=== PATIENT | female | born 1940 | race Caucasian/White ===

== ENCOUNTER 2019-04-09 09:52 | Inpatient (IN) | payer MEDICARE, OTHER ==
[~2019-04-09] VITALS: Ht 167.6 cm; Wt 68.2 kg
[2019-04-09] MEDS ORDERED: AMIODARONE 150 MG in DEXTROSE 5% 97 ML IV ONE (10:31)
[2019-04-09] MEDS ORDERED: AMIODARONE 50 MG/ML, 3ML ONE (10:31)
[2019-04-09] MEDS ORDERED: AMIODARONE 450 MG in DEXTROSE 5% 241 ML IV PRN (10:31)
--- NOTE | 2019-04-09 10:34 | NUR ---
PT TO ROOM 4 VIA WHEELCHAIR FROM TRIAGE. PT CHANGED INTO GOWN AND 02 6L OXY MASK PLACED. PT ON MONITOR. DR BLANCO AT BEDSIDE. HEART RHYTHM INTERMITANT V-TACH NOTED ON MONITOR. PIV ESTABLISHED, PT PLACED ON TRANSPORT MONITOR AND MOVED TO TRAUMA 4. 150MG AMIODARONE IVP GIVEN. PT TOLLERATING RHYTHM AND IS ABLE TO TALK T/O, ASYMPTOMATIC AND BP STABLE NOTED. DEFIB PADS IN PLACE AND MONITOR ON. SBAR RPT TO ROSSANA CUI.
[2019-04-09] MEDS ORDERED: FUROSEMIDE 20 MG/2 ML ONE (10:50)
[2019-04-09] MEDS ORDERED: ASPIRIN 81 MG TABLET CHEW ONE (10:50)
[2019-04-09] MEDS ORDERED: ASPIRIN 81 MG TABLET CHEW PO ONE (11:00)
[2019-04-09] MEDS ORDERED: SODIUM CHLORIDE FLUSH 10ML SYR IVF ONE (11:00)
[2019-04-09] MEDS ORDERED: AMIODARONE 150 MG in DEXTROSE 5% 100 ML IV ONE ×2 (11:00→18:00)
[2019-04-09] MEDS ORDERED: FUROSEMIDE 40 MG/4 ML IVPush ONE (11:00)
[2019-04-09] MEDS: FILTER 0.22 MICRON FOR AMIODARONE IV PRN (11:02)
--- NOTE | 2019-04-09 11:04 | NUR ---
RECEIVED REPORT FROM RICH TRACY, PLAN OF CARE DISCUSSED. AMIODARONE GTT STARTED. PT IN AFIB WITH RVR WITH RUNS OF VTACH. DR. SHEPPARD AT BS
--- NOTE | 2019-04-09 11:10 | NUR ---
RUN OF Allegra BOX MD AT
[2019-04-09] MEDS ORDERED: DILTIAZEM 5 MG/ML, 5ML ONE (11:11)
[2019-04-09 11:14] LABS: BASOPHILS # (AUTO) 0.06 x10^3/uL (0-0.1); BASOPHILS % (AUTO) 1 % (0-1); EOSINOPHILS % (AUTO) 1 % (1-7); LYMPHOCYTES # (AUTO) 2.14 x10^3/uL (1-3.4); LYMPHOCYTES % (AUTO) 25 % (22-44); MD NO; MEAN CORPUSCULAR HEMOGLOBIN 29.2 pg (27.0-34.8); MEAN CORPUSCULAR HGB CONC 32.7 g/dL (32.4-35.8); MEAN CORPUSCULAR VOLUME 89.3 fL (80-100); MEAN PLATELET VOLUME 8.8 fL (7.4-10.4); MONOCYTES # (AUTO) 0.59 x10^3/uL (0.2-0.8); MONOCYTES % (AUTO) 7 % (2-9); NEUTROPHILS # (AUTO) 5.84 x10^3/uL (1.8-6.8); NEUTROPHILS % (AUTO) 67 % (42-75); PLATELET COUNT 201 x10^3/uL (130-400); RED BLOOD COUNT 5.21 x10^6/uL (3.82-5.3); RED CELL DISTRIBUTION WIDTH 14.5 % (9.6-15.2)
[2019-04-09] MEDS ORDERED: [UNRECOGNIZED DRUG - OTHER] (11:21)
[2019-04-09 11:24] LABS: INTERNATIONAL NORMALIZED RATIO 1.04 (0.93-1.1)
[2019-04-09 11:28] LABS: ALBUMIN 3.6 g/dL (3.4-5.0); ANION GAP 8 mmol/L (5-15); CALCIUM 8.8 mg/dL (8.5-10.1); CHLORIDE 107 mmol/L (98-107)
[2019-04-09] MEDS ORDERED: DILTIAZEM 5 MG/ML, 5ML IVPush ONE (11:30)
[2019-04-09 11:32] LABS: ALANINE AMINOTRANSFERASE 46 U/L (12-78); ALKALINE PHOSPHATASE 101 U/L (45-117); BILIRUBIN,TOTAL 0.8 mg/dL (0.2-1.0); TOTAL PROTEIN 7.2 g/dL (6.4-8.2); TROPONIN I 0.107 ng/mL (0.000-0.045)
[2019-04-09 11:37] LABS: T4 (THYROXINE) 11.7 mcg/dL (4.8-13.9)
--- NOTE | 2019-04-09 11:38 | NUR ---
PT RESTING WITH , HR 96 AFIB. VERBALIZED NO NEEDS AT THIS TIME
[2019-04-09] MEDS ORDERED: DILTIAZEM 125 MG in SODIUM CHLORIDE 0.9% 100 ML IV SCH (12:00)
[2019-04-09] MEDS ORDERED: ACETAMINOPHEN 325 MG TABLET PO PRN (12:00)
[2019-04-09] MEDS ORDERED: HEPARIN 5,000 UNITS/ML, 1ML IV ONE (12:00)
[2019-04-09] MEDS ORDERED: ONDANSETRON ODT 4 MG PO PRN (12:00)
[2019-04-09] MEDS ORDERED: hydrALAzine 20 MG/ML, 1ML IVPush PRN (12:00)
[2019-04-09] MEDS ORDERED: HEPARIN 5,000 UNITS/ML, 1ML IV PRN (12:00)
--- NOTE | 2019-04-09 12:09 | NUR ---
REPORT TO KELLI TRACY, PLAN OF CARE DISCUSSED
--- NOTE | 2019-04-09 12:09 | NUR ---
PT MOVED TO ROOM 38. TBADM. [facility] AT BEDSIDE. SR 90S W/ PVCS. CALL [place] IN REACH.
[2019-04-09] MEDS ORDERED: HEPARIN 5,000 UNITS/ML, 1ML ONE (12:27)
[2019-04-09] MEDS ORDERED: HEPARIN 25,000 UNITS/250ML PMX 250 ML ONE (12:27)
[2019-04-09] MEDS ORDERED: POTASSIUM CHLORIDE 20 MEQ TAB.ER.PRT PO ONE (12:30)
[2019-04-09] MEDS: HEPARIN 25,000 UNITS/250ML PMX 250 ML IV PRN (12:48)
--- NOTE | 2019-04-09 12:54 | NUR ---
HEPARIN GTT STARTED PAGE OUT TO CHEKO RE DILT GTT, VITALS.
--- NOTE | 2019-04-09 13:03 | NUR ---
HOLD CARDIZEM GTT PER CHEKO.
--- NOTE | 2019-04-09 13:29 | NUR ---
REPORT TO ANJEL TRACY.
[2019-04-09] MEDS ORDERED: POTASSIUM CHLORIDE 10 MEQ TABLET.ER ONE (17:16)
[2019-04-09] MEDS: FUROSEMIDE 40 MG/4 ML IV SCH (17:31)
[2019-04-09 18:10] LABS: TROPONIN I 0.096 ng/mL (0.000-0.045)
[2019-04-09] MEDS: ONDANSETRON 2MG/ML, 2ML IVPush PRN (18:36)
[2019-04-09] MEDS ORDERED: ALBUTEROL SULFATE 2.5 MG/3 ML ONE (18:40)
[2019-04-09] MEDS ORDERED: ALBUTEROL SULFATE 2.5 MG/3 ML NPPB PRN (19:00)
[2019-04-09 19:35] VITALS: BP 105/75
[2019-04-10 01:15] VITALS: BP 107/79
[2019-04-10 02:47] LABS: MICROSCOPIC AUTO
[2019-04-10 02:53] LABS: CULTURE INDICATED? YES
[2019-04-10 05:33] LABS: BASOPHILS # (AUTO) 0.03 x10^3/uL (0-0.1); BASOPHILS % (AUTO) 0 % (0-1); EOSINOPHILS # (AUTO) 0.02 x10^3/uL (0-0.4); EOSINOPHILS % (AUTO) 0 % (1-7); LYMPHOCYTES # (AUTO) 1.23 x10^3/uL (1-3.4); LYMPHOCYTES % (AUTO) 17 % (22-44); MD NO; MEAN CORPUSCULAR HEMOGLOBIN 29.2 pg (27.0-34.8); MEAN CORPUSCULAR HGB CONC 32.7 g/dL (32.4-35.8); MEAN CORPUSCULAR VOLUME 89.3 fL (80-100); MEAN PLATELET VOLUME 9.3 fL (7.4-10.4); MONOCYTES # (AUTO) 0.45 x10^3/uL (0.2-0.8); MONOCYTES % (AUTO) 6 % (2-9); NEUTROPHILS # (AUTO) 5.53 x10^3/uL (1.8-6.8); NEUTROPHILS % (AUTO) 76 % (42-75); PLATELET COUNT 186 x10^3/uL (130-400); RED BLOOD COUNT 4.75 x10^6/uL (3.82-5.3); RED CELL DISTRIBUTION WIDTH 14.4 % (9.6-15.2)
[2019-04-10 05:40] LABS: ANION GAP 6 mmol/L (5-15); CALCIUM 8.5 mg/dL (8.5-10.1); CHLORIDE 104 mmol/L (98-107); CREATININE 0.87 mg/dL (0.55-1.02)
[2019-04-10 05:44] LABS: TROPONIN I 0.069 ng/mL (0.000-0.045)
[2019-04-10 07:33] VITALS: BP 110/75
[2019-04-10] MEDS: FUROSEMIDE 40 MG/4 ML IV SCH ×2 (08:31→18:02)
[2019-04-10] MEDS: ASPIRIN 81 MG TABLET CHEW PO SCH (08:31)
[2019-04-10] MEDS: ONDANSETRON 2MG/ML, 2ML IVPush PRN (09:14)
[2019-04-10] MEDS ORDERED: PROMETHAZINE 25 MG/ML, 1ML IM ONE (10:00)
[2019-04-10] MEDS: CARVEDILOL 3.125 MG TABLET PO SCH ×2 (10:09→18:03)
[2019-04-10 10:11] VITALS: BP 103/71
[2019-04-10 10:19] LABS: CHOL/HDL RATIO 2.3; LDL/HDL RATIO 1.1 (0.5-3.0)
[2019-04-10] MEDS: AMIODARONE 450 MG in DEXTROSE 5% 241 ML IV PRN (13:16)
[2019-04-10 13:55] VITALS: BP 101/70
[2019-04-10] MEDS: HEPARIN 25,000 UNITS/250ML PMX 250 ML IV PRN (18:04)
[2019-04-10 19:16] VITALS: BP 102/61
[2019-04-10] MEDS: ATORVASTATIN 40 MG TABLET PO SCH (21:05)
[2019-04-10] MEDS: LISINOPRIL 5 MG TABLET PO SCH (21:06)
[2019-04-11 01:19] VITALS: BP 100/65
[2019-04-11 06:22] VITALS: BP_SYST 87; BP_SYST 95; BP_DIAS 57; BP_DIAS 60
[2019-04-11] MEDS: FILTER 0.22 MICRON FOR AMIODARONE IV PRN (06:25)
[2019-04-11] MEDS: AMIODARONE 450 MG in DEXTROSE 5% 241 ML IV PRN (06:25)
[2019-04-11 06:49] LABS: BASOPHILS # (AUTO) 0.05 x10^3/uL (0-0.1); BASOPHILS % (AUTO) 1 % (0-1); EOSINOPHILS # (AUTO) 0.07 x10^3/uL (0-0.4); EOSINOPHILS % (AUTO) 1 % (1-7); LYMPHOCYTES # (AUTO) 1.94 x10^3/uL (1-3.4); LYMPHOCYTES % (AUTO) 23 % (22-44); MD NO; MEAN CORPUSCULAR HEMOGLOBIN 29.3 pg (27.0-34.8); MEAN CORPUSCULAR HGB CONC 32.8 g/dL (32.4-35.8); MEAN CORPUSCULAR VOLUME 89.6 fL (80-100); MEAN PLATELET VOLUME 9.2 fL (7.4-10.4); MONOCYTES # (AUTO) 0.71 x10^3/uL (0.2-0.8); MONOCYTES % (AUTO) 8 % (2-9); NEUTROPHILS # (AUTO) 5.74 x10^3/uL (1.8-6.8); NEUTROPHILS % (AUTO) 67 % (42-75); PLATELET COUNT 162 x10^3/uL (130-400); RED BLOOD COUNT 4.88 x10^6/uL (3.82-5.3); RED CELL DISTRIBUTION WIDTH 14.8 % (9.6-15.2)
[2019-04-11 07:05] LABS: ALANINE AMINOTRANSFERASE 37 U/L (12-78); ALBUMIN 3.1 g/dL (3.4-5.0); ANION GAP 7 mmol/L (5-15); CALCIUM 8.5 mg/dL (8.5-10.1); CHLORIDE 101 mmol/L (98-107); CREATININE 0.92 mg/dL (0.55-1.02)
[2019-04-11 07:07] LABS: ALKALINE PHOSPHATASE 81 U/L (45-117); BILIRUBIN,TOTAL 0.8 mg/dL (0.2-1.0); TOTAL PROTEIN 6.5 g/dL (6.4-8.2)
[2019-04-11] MEDS: FUROSEMIDE 40 MG/4 ML IV SCH ×2 (07:30→16:18)
[2019-04-11] MEDS: ASPIRIN 81 MG TABLET CHEW PO SCH (08:31)
[2019-04-11] MEDS: CARVEDILOL 3.125 MG TABLET PO SCH ×2 (08:32→18:00)
[2019-04-11] MEDS: LISINOPRIL 5 MG TABLET PO SCH ×2 (08:32→20:22)
[2019-04-11 12:25] VITALS: BP 98/63
[2019-04-11] MEDS ORDERED: LIDOCAINE-MPF 1%, 5ML ONE (13:56)
[2019-04-11] MEDS ORDERED: TICAGRELOR 90 MG TABLET ONE (13:56)
[2019-04-11] MEDS ORDERED: VERAPAMIL 2.5 MG/ML, 2ML ONE (13:56)
[2019-04-11] MEDS ORDERED: FENTANYL PF 100 MCG/2ML ONE (13:56)
[2019-04-11] MEDS ORDERED: MIDAZOLAM 1 MG/ML, 5ML ONE (13:56)
[2019-04-11] MEDS ORDERED: BIVALIRUDIN 250 MG ONE (13:56)
[2019-04-11] MEDS: AMIODARONE 200 MG TABLET PO SCH ×2 (16:16→20:22)
[2019-04-11] MEDS ORDERED: POTASSIUM CHLORIDE 20 MEQ TAB.ER.PRT PO ONE (17:00)
[2019-04-11 20:13] VITALS: BP 100/71
[2019-04-11] MEDS: ATORVASTATIN 40 MG TABLET PO SCH (20:22)
[2019-04-12 00:34] VITALS: BP 93/57
[2019-04-12 05:17] LABS: ALBUMIN 2.9 g/dL (3.4-5.0); ANION GAP 6 mmol/L (5-15); CALCIUM 8.1 mg/dL (8.5-10.1); CHLORIDE 100 mmol/L (98-107)
[2019-04-12 05:22] LABS: ALANINE AMINOTRANSFERASE 31 U/L (12-78); ALKALINE PHOSPHATASE 82 U/L (45-117); BILIRUBIN,TOTAL 0.6 mg/dL (0.2-1.0); CREATININE 0.89 mg/dL (0.55-1.02); TOTAL PROTEIN 5.9 g/dL (6.4-8.2)
[2019-04-12] MEDS: CARVEDILOL 3.125 MG TABLET PO SCH ×2 (05:36→08:13)
[2019-04-12 06:57] VITALS: BP 93/61
[2019-04-12] MEDS: FUROSEMIDE 40 MG/4 ML IV SCH (07:30)
[2019-04-12 08:01] VITALS: BP 93/57
[2019-04-12] MEDS: LISINOPRIL 5 MG TABLET PO SCH (08:01)
[2019-04-12] MEDS: ASPIRIN 81 MG TABLET CHEW PO SCH (08:02)
[2019-04-12] MEDS: AMIODARONE 200 MG TABLET PO SCH (08:13)
[2019-04-12] MEDS ORDERED: CEFTRIAXONE PMX 1GM/50ML 50 ML IV SCH (10:00)
[2019-04-12] MEDS ORDERED: CEFD300C37 PO (10:33)
== END 2019-04-12 11:54 | disposition home or self-care (01) | DRG 286 ==
LOC: SUATTDRO 11:49 → ED 13:14 → EDIP 14:01 → 5SO 14:08
PROVIDERS: ADMIT Hospitalist; ATTEND Family Medicine
PROC: 4A023N7 Measurement of Cardiac Sampling and Pressure, Left Heart, Percutaneous Approach (ICD-10-PCS; principal; 2019-04-11)
PROC: B2111ZZ Fluoroscopy of Multiple Coronary Arteries using Low Osmolar Contrast (ICD-10-PCS; 2019-04-11)
DX: I11.0 Hypertensive heart disease with heart failure (principal); J96.01 Acute respiratory failure with hypoxia; D68.69 Other thrombophilia; I31.3 Pericardial effusion (noninflammatory); I47.2 Ventricular tachycardia; I50.41 Acute combined systolic (congestive) and diastolic (congestive) heart failure; I42.9 Cardiomyopathy, unspecified; I34.0 Nonrheumatic mitral (valve) insufficiency; I48.0 Paroxysmal atrial fibrillation; J43.9 Emphysema, unspecified; Z66 Do not resuscitate; Z80.0 Family history of malignant neoplasm of digestive organs; Z80.6 Family history of leukemia; Z87.891 Personal history of nicotine dependence; Z99.81 Dependence on supplemental oxygen; Z90.49 Acquired absence of other specified parts of digestive tract; Z90.89 Acquired absence of other organs
CPT/HCPCS: 36415; 71045; 80048; 80053; 80061; 81001; 83605; 83735; 83880; 84436; 84443; 84484; 85025; 85520; 85610; 87077; 87086; 87186; 93005; 93306; 93356; 93458; 94640; 96365; 96366; 96375; 99156; 99291; 99292; C1769; C1894; G0378; J0583; J0696; J1644; J1940; J2250; J2405; J2550; J3010; J7060; J0282; Q9967

== ENCOUNTER 2019-05-21 18:38 | Inpatient (IN) | payer MEDICARE ==
[~2019-05-21] VITALS: Ht 157.5 cm; Wt 60.8 kg
[~2019-05-21 18:38] MED LIST: AMIO200T42 PO; APIX5TAB PO; BUSP15TA PO; CEFD300C37 PO; CHOL10003 PO; FURO40TA6 PO; POTA20TA6 PO; SPIR25TA PO; [UNRECOGNIZED DRUG - OTHER]
--- NOTE | 2019-05-21 18:50 | NUR ---
BIB [facility], "I'M JUST SO WEAK". PT DENIES LOC/HEAD, NECK OR BACK PAIN/CP/DIZZINESS; NO WOUNDS NOTED. FSBS 130 BY [facility]. A&OX4, SPEECH CLEAR, FACE SYMMETRICAL +GENERALIZED WEAKNESS PER EMS, PT RECENTLY DC'D FROM [facility] FOR CHF EXACERBATION, WHILE ADMITTED SO . NEIGHBOR REPORTS FAILURE TO THRIVE SINCE DC FROM HOSPITAL. PT ARRIVES ASKING FOR FOOD. BP/SPO2/ECG MONITORING IN PLACE. SPO2 >90% ON BASELINE 2L BY NC. NSR ON MONITOR. EKG COMPLETED UPON ARRIVAL.
--- NOTE | 2019-05-21 19:10 | NUR ---
Break rn: Pt to ct at this time.,
--- NOTE | 2019-05-21 19:30 | NUR ---
PT RETURNED FROM CT. REMAINS A&OX4 AND FOLLOWING COMMANDS. STRAIGHT CATH UA COLLECTED AND WALKED TO LAB
[2019-05-21 19:41] LABS: BASOPHILS # (AUTO) 0.02 x10^3/uL (0-0.1); BASOPHILS % (AUTO) 0 % (0-1); EOSINOPHILS # (AUTO) 0.01 x10^3/uL (0-0.4); EOSINOPHILS % (AUTO) 0 % (1-7); LYMPHOCYTES % (AUTO) 7 % (22-44); MD NO; MEAN CORPUSCULAR HEMOGLOBIN 29.4 pg (27.0-34.8); MEAN CORPUSCULAR HGB CONC 33.1 g/dL (32.4-35.8); MEAN CORPUSCULAR VOLUME 88.8 fL (80-100); MEAN PLATELET VOLUME 9.7 fL (7.4-10.4); MONOCYTES # (AUTO) 0.55 x10^3/uL (0.2-0.8); MONOCYTES % (AUTO) 5 % (2-9); NEUTROPHILS # (AUTO) 9.83 x10^3/uL (1.8-6.8); NEUTROPHILS % (AUTO) 88 % (42-75); PLATELET COUNT 192 x10^3/uL (130-400); RED BLOOD COUNT 5.39 x10^6/uL (3.82-5.3); RED CELL DISTRIBUTION WIDTH 16.2 % (9.6-15.2)
[2019-05-21 19:52] LABS: MICROSCOPIC INDICATED
[2019-05-21 19:54] LABS: ALANINE AMINOTRANSFERASE 953 U/L (12-78); ALBUMIN 3.5 g/dL (3.4-5.0); CALCIUM 9.1 mg/dL (8.5-10.1); CHLORIDE 86 mmol/L (98-107); CREATININE 3.54 mg/dL (0.55-1.02)
[2019-05-21 19:58] LABS: ALKALINE PHOSPHATASE 175 U/L (45-117); BILIRUBIN,TOTAL 3.2 mg/dL (0.2-1.0); TOTAL PROTEIN 6.7 g/dL (6.4-8.2); TROPONIN I 0.063 ng/mL (0.000-0.045)
[2019-05-21 19:59] LABS: CULTURE INDICATED? YES
[2019-05-21 20:02] LABS: ANION GAP 21 mmol/L (5-15)
--- NOTE | 2019-05-21 20:15 | NUR ---
CONVERSATION WITH ERP REGARDING LABS. ORDER RECEIVED FOR ASA AND CHEST XRAY. POC IS ADMIT, PT AWARE.
[2019-05-21] MEDS ORDERED: ASPIRIN 81 MG TABLET CHEW PO ONE (20:30)
[2019-05-21] MEDS ORDERED: ASPIRIN 81 MG TABLET CHEW ONE ×2 (20:34→20:36)
--- NOTE | 2019-05-21 20:40 | NUR ---
PT MEDICATED PER EMAR WITH ASA. PT UPDATED TO POC (ADMIT) AND DEMONSTRATES UNDERSTANDING. AWAITING ADMIT ORDERS
[2019-05-21] MEDS ORDERED: SODIUM BICARB 8.4%, 50ML SYRINGE IVPush ONE (22:30)
[2019-05-21] MEDS ORDERED: BISACODYL 10 MG SUPP PR PRN (22:30)
[2019-05-21] MEDS ORDERED: SODIUM ZIRCONIUM CYCLOSILICATE 10 GM PO ONE (22:30)
[2019-05-21] MEDS ORDERED: FUROSEMIDE 20 MG/2 ML IV SCH (22:30)
[2019-05-21] MEDS ORDERED: POLYETHYLENE GLYCOL 17 GM PACKET PO PRN (22:30)
[2019-05-21 22:37] VITALS: BP 95/67
[2019-05-21 23:25] LABS: POTASSIUM,URINE RANDOM 63 mmol/L; SODIUM,URINE RANDOM 7 mmol/L
[2019-05-21 23:37] LABS: CHLORIDE,URINE RANDOM < 10 mmol/L
[2019-05-22] MEDS: SODIUM CHLORIDE FLUSH 10ML SYR IVF SCH ×3 (00:01→21:05)
[2019-05-22 00:14] VITALS: BP 103/71
[2019-05-22 02:07] LABS: TROPONIN I 0.048 ng/mL (0.000-0.045)
[2019-05-22 02:19] VITALS: BP 102/70
[2019-05-22] MEDS ORDERED: CALCIUM GLUCONATE 4.6 MEQ in SODIUM CHLORIDE 0.9% 100 ML IV ONE (02:30)
[2019-05-22 04:56] LABS: BASOPHILS # (AUTO) 0.02 x10^3/uL (0-0.1); BASOPHILS % (AUTO) 0 % (0-1); EOSINOPHILS # (AUTO) 0.01 x10^3/uL (0-0.4); EOSINOPHILS % (AUTO) 0 % (1-7); LYMPHOCYTES # (AUTO) 0.76 x10^3/uL (1-3.4); LYMPHOCYTES % (AUTO) 6 % (22-44); MD NO; MEAN CORPUSCULAR HEMOGLOBIN 29.5 pg (27.0-34.8); MEAN CORPUSCULAR HGB CONC 32.5 g/dL (32.4-35.8); MEAN CORPUSCULAR VOLUME 90.7 fL (80-100); MONOCYTES # (AUTO) 0.98 x10^3/uL (0.2-0.8); MONOCYTES % (AUTO) 7 % (2-9); NEUTROPHILS # (AUTO) 11.45 x10^3/uL (1.8-6.8); NEUTROPHILS % (AUTO) 87 % (42-75); PLATELET COUNT 192 x10^3/uL (130-400); RED BLOOD COUNT 5.23 x10^6/uL (3.82-5.3); RED CELL DISTRIBUTION WIDTH 15.6 % (9.6-15.2)
[2019-05-22 07:04] LABS: ALBUMIN 3.5 g/dL (3.4-5.0); ANION GAP 14 mmol/L (5-15); CALCIUM 9.2 mg/dL (8.5-10.1); CHLORIDE 84 mmol/L (98-107); CREATININE 3.52 mg/dL (0.55-1.02)
[2019-05-22 07:05] VITALS: BP 111/79
[2019-05-22 07:12] LABS: ALANINE AMINOTRANSFERASE 1292 U/L (12-78); ALKALINE PHOSPHATASE 173 U/L (45-117); BILIRUBIN,TOTAL 3.6 mg/dL (0.2-1.0); TOTAL PROTEIN 6.5 g/dL (6.4-8.2)
[2019-05-22 07:53] LABS: ALBUMIN 3.6 g/dL (3.4-5.0); ANION GAP 16 mmol/L (5-15); CALCIUM 9.1 mg/dL (8.5-10.1); CHLORIDE 84 mmol/L (98-107)
[2019-05-22 07:58] LABS: ALKALINE PHOSPHATASE 182 U/L (45-117); BILIRUBIN,TOTAL 3.6 mg/dL (0.2-1.0); CREATININE 3.56 mg/dL (0.55-1.02); TOTAL PROTEIN 6.8 g/dL (6.4-8.2); TROPONIN I 0.064 ng/mL (0.000-0.045)
[2019-05-22 08:02] LABS: ALANINE AMINOTRANSFERASE 1387 U/L (12-78)
[2019-05-22] MEDS: FUROSEMIDE 40 MG/4 ML IV SCH ×3 (09:28→21:05)
[2019-05-22] MEDS: CHOLECALCIFEROL 1,000 UNIT TABLET PO SCH (09:29)
[2019-05-22] MEDS: AMIODARONE 200 MG TABLET PO SCH ×2 (09:29→21:05)
[2019-05-22] MEDS: SENNA/DOCUSATE TABLET PO SCH (09:29)
[2019-05-22] MEDS: APIXABAN 2.5 MG TABLET PO SCH ×2 (09:29→21:05)
[2019-05-22] MEDS: CEFTRIAXONE PMX 1GM/50ML 50 ML IV SCH (10:43)
[2019-05-22 14:12] VITALS: BP 104/71
[2019-05-22 20:20] VITALS: BP 101/66
[2019-05-23 01:15] VITALS: BP 94/60
[2019-05-23 06:51] VITALS: BP 90/59
[2019-05-23 07:48] LABS: BASOPHILS # (AUTO) 0.07 x10^3/uL (0-0.1); BASOPHILS % (AUTO) 1 % (0-1); EOSINOPHILS % (AUTO) 0 % (1-7); LYMPHOCYTES # (AUTO) 0.61 x10^3/uL (1-3.4); LYMPHOCYTES % (AUTO) 6 % (22-44); MD NO; MEAN CORPUSCULAR HEMOGLOBIN 29.7 pg (27.0-34.8); MEAN PLATELET VOLUME 8.8 fL (7.4-10.4); MONOCYTES # (AUTO) 1.12 x10^3/uL (0.2-0.8); MONOCYTES % (AUTO) 11 % (2-9); NEUTROPHILS # (AUTO) 8.69 x10^3/uL (1.8-6.8); NEUTROPHILS % (AUTO) 83 % (42-75); PLATELET COUNT 173 x10^3/uL (130-400); RED BLOOD COUNT 5.43 x10^6/uL (3.82-5.3); RED CELL DISTRIBUTION WIDTH 15.9 % (9.6-15.2)
[2019-05-23 07:59] LABS: ALBUMIN 3.3 g/dL (3.4-5.0); ANION GAP 11 mmol/L (5-15); CALCIUM 8.2 mg/dL (8.5-10.1); CHLORIDE 83 mmol/L (98-107); CREATININE 2.49 mg/dL (0.55-1.02)
[2019-05-23 08:06] LABS: ALANINE AMINOTRANSFERASE 1178 U/L (12-78); ALKALINE PHOSPHATASE 157 U/L (45-117); BILIRUBIN,TOTAL 2.5 mg/dL (0.2-1.0); TOTAL PROTEIN 6.4 g/dL (6.4-8.2)
[2019-05-23] MEDS: SODIUM CHLORIDE FLUSH 10ML SYR IVF SCH ×2 (09:00→20:44)
[2019-05-23] MEDS: AMIODARONE 200 MG TABLET PO SCH ×2 (09:36→20:35)
[2019-05-23] MEDS: FUROSEMIDE 40 MG/4 ML IV SCH ×2 (09:37→20:35)
[2019-05-23] MEDS: SENNA/DOCUSATE TABLET PO SCH (09:37)
[2019-05-23] MEDS: APIXABAN 2.5 MG TABLET PO SCH ×2 (09:37→20:35)
[2019-05-23] MEDS: CHOLECALCIFEROL 1,000 UNIT TABLET PO SCH (09:37)
[2019-05-23] MEDS: CEFTRIAXONE PMX 1GM/50ML 50 ML IV SCH (09:47)
[2019-05-23 12:04] VITALS: BP 91/57
[2019-05-23 18:43] VITALS: BP 94/70
[2019-05-23 20:27] VITALS: BP 98/62
[2019-05-24] VITALS (8 sets, daily range): BP systolic 64–103; BP diastolic 42–71
[2019-05-24 04:57] LABS: BASOPHILS # (AUTO) 0.02 x10^3/uL (0-0.1); BASOPHILS % (AUTO) 0 % (0-1); EOSINOPHILS # (AUTO) 0.01 x10^3/uL (0-0.4); EOSINOPHILS % (AUTO) 0 % (1-7); LYMPHOCYTES # (AUTO) 0.61 x10^3/uL (1-3.4); LYMPHOCYTES % (AUTO) 7 % (22-44); MD NO; MEAN CORPUSCULAR HEMOGLOBIN 29.1 pg (27.0-34.8); MEAN CORPUSCULAR HGB CONC 32.6 g/dL (32.4-35.8); MEAN CORPUSCULAR VOLUME 89.2 fL (80-100); MONOCYTES # (AUTO) 0.39 x10^3/uL (0.2-0.8); MONOCYTES % (AUTO) 4 % (2-9); NEUTROPHILS # (AUTO) 7.84 x10^3/uL (1.8-6.8); NEUTROPHILS % (AUTO) 88 % (42-75); PLATELET COUNT 168 x10^3/uL (130-400); RED BLOOD COUNT 5.21 x10^6/uL (3.82-5.3); RED CELL DISTRIBUTION WIDTH 15.7 % (9.6-15.2)
[2019-05-24 05:04] LABS: ALANINE AMINOTRANSFERASE 958 U/L (12-78); ANION GAP 9 mmol/L (5-15); CHLORIDE 81 mmol/L (98-107)
[2019-05-24 05:07] LABS: ALKALINE PHOSPHATASE 136 U/L (45-117); BILIRUBIN,TOTAL 2.3 mg/dL (0.2-1.0); CREATININE 1.51 mg/dL (0.55-1.02); TOTAL PROTEIN 6.2 g/dL (6.4-8.2)
[2019-05-24] MEDS ORDERED: POTASSIUM CHLORIDE 20 MEQ TAB.ER.PRT PO ONE ×2 (05:30→10:00)
[2019-05-24] MEDS: FUROSEMIDE 40 MG/4 ML IV SCH (09:00)
[2019-05-24] MEDS: CHOLECALCIFEROL 1,000 UNIT TABLET PO SCH (09:31)
[2019-05-24] MEDS: CEFTRIAXONE PMX 1GM/50ML 50 ML IV SCH (09:33)
[2019-05-24] MEDS: SENNA/DOCUSATE TABLET PO SCH (09:33)
[2019-05-24] MEDS: APIXABAN 2.5 MG TABLET PO SCH ×2 (09:33→20:35)
[2019-05-24] MEDS: SODIUM CHLORIDE FLUSH 10ML SYR IVF SCH ×2 (09:42→20:35)
[2019-05-24] MEDS: AMIODARONE 200 MG TABLET PO SCH ×2 (10:01→20:35)
[2019-05-24] MEDS ORDERED: CEFD300C37 PO (10:17)
[2019-05-24] MEDS ORDERED: ONDANSETRON ODT 4 MG PO ONE (12:30)
[2019-05-24] MEDS ORDERED: METOPROLOL 1 MG/ML, 5ML IVPush ONE (13:00)
[2019-05-24] MEDS ORDERED: METOPROLOL 1 MG/ML, 5ML ONE (13:11)
[2019-05-24] MEDS ORDERED: SODIUM CHLORIDE 0.9%, 250ML IVBOLUS ONE (13:30)
[2019-05-24] MEDS ORDERED: DIGOXIN 0.25 MG/ML, 2ML ONE (13:39)
[2019-05-24] MEDS ORDERED: AMIODARONE 150 MG in DEXTROSE 5% 97 ML IVPB ONE (14:00)
[2019-05-24] MEDS ORDERED: DIGOXIN 0.25 MG/ML, 2ML IVPush ONE ×2 (14:00→18:45)
[2019-05-24] MEDS ORDERED: FILTER 0.22 MICRON IV PRN (14:00)
[2019-05-24] MEDS ORDERED: AMIODARONE 450 MG in DEXTROSE 5% 241 ML IV PRN (14:10)
[2019-05-24] MEDS ORDERED: PROPOFOL 10 MG/ML, 20ML ONE (14:10)
[2019-05-24] MEDS ORDERED: AMIODARONE 50 MG/ML, 3ML IVPush ONE ×2 (14:10→14:30)
[2019-05-24] MEDS ORDERED: ADENOSINE 6 MG/2 ML IVPush ONE ×2 (14:30)
[2019-05-25 00:56] VITALS: BP 98/58
[2019-05-25] MEDS ORDERED: DIGOXIN 0.25 MG/ML, 2ML IVPush ONE (01:45)
[2019-05-25 04:38] LABS: BASOPHILS # (AUTO) 0.02 x10^3/uL (0-0.1); BASOPHILS % (AUTO) 0 % (0-1); EOSINOPHILS # (AUTO) 0.01 x10^3/uL (0-0.4); EOSINOPHILS % (AUTO) 0 % (1-7); LYMPHOCYTES # (AUTO) 0.75 x10^3/uL (1-3.4); LYMPHOCYTES % (AUTO) 8 % (22-44); MD NO; MEAN CORPUSCULAR HEMOGLOBIN 29.3 pg (27.0-34.8); MEAN CORPUSCULAR HGB CONC 32.6 g/dL (32.4-35.8); MEAN PLATELET VOLUME 8.9 fL (7.4-10.4); MONOCYTES # (AUTO) 0.47 x10^3/uL (0.2-0.8); MONOCYTES % (AUTO) 5 % (2-9); NEUTROPHILS # (AUTO) 7.78 x10^3/uL (1.8-6.8); NEUTROPHILS % (AUTO) 86 % (42-75); PLATELET COUNT 157 x10^3/uL (130-400); RED BLOOD COUNT 4.99 x10^6/uL (3.82-5.3)
[2019-05-25 04:47] LABS: ALANINE AMINOTRANSFERASE 689 U/L (12-78); ALBUMIN 2.7 g/dL (3.4-5.0); ANION GAP 6 mmol/L (5-15); CHLORIDE 84 mmol/L (98-107); CREATININE 1.14 mg/dL (0.55-1.02)
[2019-05-25 04:49] LABS: ALKALINE PHOSPHATASE 124 U/L (45-117); BILIRUBIN,TOTAL 2.1 mg/dL (0.2-1.0); TOTAL PROTEIN 5.8 g/dL (6.4-8.2)
[2019-05-25 07:20] VITALS: BP 106/61
[2019-05-25] MEDS ORDERED: FUROSEMIDE 40 MG/4 ML IV SCH ×2 (09:00)
[2019-05-25] MEDS: SENNA/DOCUSATE TABLET PO SCH (09:05)
[2019-05-25] MEDS: AMIODARONE 200 MG TABLET PO SCH (09:05)
[2019-05-25] MEDS: CHOLECALCIFEROL 1,000 UNIT TABLET PO SCH (09:05)
[2019-05-25] MEDS: APIXABAN 2.5 MG TABLET PO SCH (09:05)
[2019-05-25] MEDS: CEFTRIAXONE PMX 1GM/50ML 50 ML IV SCH (09:07)
[2019-05-25] MEDS: SODIUM CHLORIDE FLUSH 10ML SYR IVF SCH (09:13)
[2019-05-25 11:29] VITALS: BP 98/58
[2019-05-25 13:48] VITALS: BP 107/66
[2019-05-25] MEDS ORDERED: APIXABAN 5 MG TABLET PO SCH (21:00)
== END 2019-05-25 16:31 | disposition home or self-care (01) | DRG 682 ==
LOC: ED 19:07 → EDIP 21:15 → 5SO 22:06
PROVIDERS: ADMIT Internal Medicine; ATTEND Hospitalist
PROC: 5A2204Z Restoration of Cardiac Rhythm, Single (ICD-10-PCS; principal; 2019-05-24 14:00)
DX: N17.0 Acute kidney failure with tubular necrosis (principal); I50.23 Acute on chronic systolic (congestive) heart failure; G93.41 Metabolic encephalopathy; K72.00 Acute and subacute hepatic failure without coma; E87.1 Hypo-osmolality and hyponatremia; N39.0 Urinary tract infection, site not specified; L02.413 Cutaneous abscess of right upper limb; L03.113 Cellulitis of right upper limb; E87.2 Acidosis; I13.0 Hypertensive heart and chronic kidney disease with heart failure and stage 1 through stage 4 chronic kidney disease, or unspecified chronic kidney disease; I42.8 Other cardiomyopathies; I48.0 Paroxysmal atrial fibrillation; E87.5 Hyperkalemia; F43.21 Adjustment disorder with depressed mood; K76.1 Chronic passive congestion of liver; E78.5 Hyperlipidemia, unspecified; N18.9 Chronic kidney disease, unspecified; E03.9 Hypothyroidism, unspecified; M48.061 Spinal stenosis, lumbar region without neurogenic claudication; I95.9 Hypotension, unspecified; I25.10 Atherosclerotic heart disease of native coronary artery without angina pectoris; Z79.899 Other long term (current) drug therapy; Z95.1 Presence of aortocoronary bypass graft; W01.0XXA Fall on same level from slipping, tripping and stumbling without subsequent striking against object, initial encounter; Y93.89 Activity, other specified; Y92.009 Unspecified place in unspecified non-institutional (private) residence as the place of occurrence of the external cause; Y99.8 Other external cause status
CPT/HCPCS: 36415; 70450; 71045; 76700; 80053; 81001; 82436; 82570; 83735; 83880; 83930; 83935; 84100; 84132; 84133; 84295; 84300; 84484; 85025; 87086; 92960; 93005; G0378; J0153; J0610; J0696; J1940; J2704; Q0162; J0282; J1160; J7050